=== PATIENT | male | born 1955 | race African-American/Black ===

== ENCOUNTER 2019-08-19 17:21 | Emergency (ER) | payer MEDICAID ==
[~2019-08-19] VITALS: Ht 175.3 cm; Wt 95.0 kg
[2019-08-19] MEDS ORDERED: TETANUS, DIPHTHERIA, PERTUSSIS VAC/PF 0.5ML (>7YR OLD) IM ONE (19:30)
[2019-08-19] MEDS ORDERED: IBUPROFEN 600MG TABLET PO ONE (19:30)
[2019-08-19] MEDS ORDERED: BACITRACIN ZINC OINT UDPKT TOP ONE (19:30)
[2019-08-19] MEDS ORDERED: CEPHALEXIN 250MG CAPSULE PO ONE (19:30)
[2019-08-19 20:28] VITALS: BP 132/91
== END 2019-08-19 20:28 | disposition home or self-care (01) ==
LOC: ER 17:21
DX: S61.411A Laceration without foreign body of right hand, initial encounter (principal); X58.XXXA Exposure to other specified factors, initial encounter; Y93.89 Activity, other specified; Y92.89 Other specified places as the place of occurrence of the external cause; Y99.8 Other external cause status
CPT/HCPCS: 90471; 90715; 99283; 99284